=== PATIENT | female | born 1990 | race Two or more races ===

== ENCOUNTER 2021-12-30 11:16 | Emergency (ER) | payer SELFPAY ==
[~2021-12-30] VITALS: Ht 157.5 cm; Wt 81.6 kg
[2021-12-30 11:24] VITALS: BP 128/85
[2021-12-30] MEDS ORDERED: LORAZEPAM 1 MG TABLET PO ONE (12:00)
[2021-12-30] MEDS ORDERED: LORAZEPAM 1 MG TABLET ONE (12:06)
[2021-12-30] MEDS ORDERED: PROP10TA10 PO (13:10)
--- NOTE | 2021-12-30 13:20 | NUR ---
Patient discharged to home in stable condition. Written and verbal after care instructions given. Patient verbalizes understanding of instruction.
== END 2021-12-30 13:36 | disposition home or self-care (01) ==
LOC: ER 11:18
DX: R06.4 Hyperventilation (principal); F41.0 Panic disorder [episodic paroxysmal anxiety]; E11.9 Type 2 diabetes mellitus without complications; Z79.899 Other long term (current) drug therapy